=== PATIENT | male | born 1990 | race Two or more races ===

== ENCOUNTER 2017-04-12 12:14 | Emergency (ER) | payer SELFPAY ==
[2017-04-12] MEDS ORDERED: Sodium Chloride 0.9% 1000 ML 1,000 ML IV STA (12:41)
[2017-04-12] MEDS ORDERED: Reglan 10 MG/2 ML IV ONE (12:41)
[2017-04-12] MEDS ORDERED: BENADRYL 50 MG/ML IV ONE (12:41)
--- NOTE | 2017-04-12 12:49 | ERPHSYRPT ---
- History of Present Illness Time Seen by Provider: 04/12/17 12:33 Source: patient Exam Limitations: no limitations Patient Subjective Stated Complaint: Pt states he has had a headache since 4 this morning that continues to get worse. He is now having double/blurred vision. Bright light makes the pain worse. Pt states he feels weak. He is supposed to take migraine medicine but cannot bring them into the [place] so he has not had them in 6-7 months. Triage Nursing Assessment: Pt alert and oriented x3. skin pink warm and dry. afebrile. no weakness noted. pupils 4mm equal and reactive Physician History: 27-year-old white male arrives with complaint of frontal headache which he describes as a migraine which he usually gets since 4:00 this morning he denies any vomiting he denies fever states that he has had nasal congestion and pressure in the sinus area. He has no photophobia. Past medical history includes migraines orthopedic surgery Patient states that he is from [facility] and apparently had small blue pills that he took one in the morning and when it tonight but he was not allowed to [place] the country. Timing/Duration: today (fourth 30 this morning) Quality: aching Head Pain Location: frontal Severity of Pain-Max: moderate Severity of Pain-Current: moderate Recent Head Trauma: chronic headaches Modifying Factors: Worsens With: exposure to light, immobilization, medication, movement, rest, noise, position Associated Symptoms: No confusion, No dizziness, No fatigue, No facial pain, No fever/chills, No flushing, No light-headedness, No loss of consciousness, No nausea/vomiting, No nasal congestion, No nasal drainage, No neck pain, No numbness in legs/feet, No rash, No sweating, No scotoma, No seizures, No sinus infection, No sensitive to light, No speech problems, No stiff neck, No trouble walking, No vision changes, No visual disturbance, No weakness Previous symptoms: same symptoms as today Allergies/Adverse Reactions: No Known Drug Allergies Allergy (Unverified 04/12/17 12:26) Hx Pneumococcal Vaccination/Date Given: No Immunizations Up to Date: No - Review of Systems Constitutional: No Fever, No Chills Eyes: No Symptoms, No Discharge, No Eye Pain, No Eye Redness, No Itchy, No Photophobia, No Tearing, No Vision Changes, No Double Vision, No Foreign Body Sensation Ears, Nose, & Throat: No Ear Pain, No Ear Discharge, No Hearing Changes, No Tinnitus, No Nose Discharge, No Sinus Drainage, No Epistaxis, No Mouth Pain, No Mouth Swelling, No Loose Teeth, No Throat Pain, No Throat Swelling, No Hoarse, No Painful Swallowing, No Snoring, No Stridor Respiratory: No Cough, No Dyspnea Cardiac: No Chest Pain, No Edema, No Syncope Abdominal/Gastrointestinal: No Abdominal Pain, No Nausea, No Vomiting, No Diarrhea Genitourinary Symptoms: No Dysuria Musculoskeletal: No Back Pain, No Neck Pain Skin: No Rash Neurological: Headache, No Dizziness, No Focal Weakness, No Gait Changes, No Irritability, No Lethargy, No Paralysis, No Parasthesia, No Seizure, No Sensory Changes, No Speech Changes, No Tics, No Tremors, No Vertigo Psychological: No Symptoms Endocrine: No Symptoms All Other Systems: Reviewed and Negative - Past Medical History Neurological History: Migraines Other Medical History: femur fx - Past Surgical History Musculoskeletal: Orthopedic Surgery Other Surgical History: femur repair - Social History Smoking Status: Current every day smoker Drug Use: none Patient Lives Alone: No - Nursing Vital Signs Nursing Vital Signs: Initial Vital Signs Temperature 98.3 F 04/12/17 12:17 Pulse Rate 59 L 04/12/17 12:17 Respiratory Rate 16 04/12/17 12:17 Blood Pressure 157/98 04/12/17 12:17 O2 Sat by Pulse Oximetry 100 04/12/17 12:17 Pain Scale Pain Intensity 8 - Physical Exam General Appearance: no apparent distress Eye Exam: PERRL/EOMI Ears, Nose, Throat Exam: normal ENT inspection, moist mucous membranes Neck Exam: normal inspection, supple, full range of motion, No meningismus Respiratory Exam: normal breath sounds, lungs clear Cardiovascular Exam: regular rate/rhythm, normal heart sounds Gastrointestinal/Abdominal Exam: soft, No tenderness, No distention Back Exam: normal inspection, normal range of motion Mental Status Exam: alert, oriented x 3, 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 Exam: normal speech, PERRL, No facial droop Coordination/Gait Exam: normal finger to nose, normal gait, normal cerebellar function Motor/Sensory Exam: no motor deficit, no sensory deficit, no pronator drift, No weak motor strength LUE, No weak motor strength RLE Skin Exam: normal color, warm, dry, No rash SpO2 Interpretation: normal (100%) SpO2: 100 Oxygen Delivery: Room Air Ordered Tests: Active Orders 24 hr Category Date Time Status IV Insertion STAT Care 04/12/17 12:41 Active Medication Summary Generic Name Dose Route Start Last Admin Trade Name Hina PRN Reason Stop Dose Admin Sodium Chloride 1,000 mls @ 999 mls/hr 04/12/17 12:41 04/12/17 12:56 Sodium Chloride 0.9% 1000 Ml IV 04/12/17 13:41 999 mls/hr .Q1H1M STA Administration Discontinued Medications Generic Name Dose Route Start Last Admin Trade Name Freq PRN Reason Stop Dose Admin Diphenhydramine HCl 25 mg 04/12/17 12:41 04/12/17 12:56 Benadryl 50 Mg/Ml IV 04/12/17 12:42 25 mg STAT ONE Administration Diphenhydramine HCl Confirm 04/12/17 12:50 Benadryl 50 Mg/Ml Administered 04/12/17 12:51 Dose 50 mg .ROUTE .STK-MED ONE Sodium Chloride Confirm 04/12/17 12:50 Sodium Chloride 0.9% 1000 Ml Administered 04/12/17 12:51 Dose 1,000 mls @ ud .ROUTE .STK-MED ONE Metoclopramide HCl 10 mg 04/12/17 12:41 04/12/17 12:56 Reglan 10 Mg/2 Ml IV 04/12/17 12:42 10 mg STAT ONE Administration Metoclopramide HCl Confirm 04/12/17 12:50 Reglan 10 Mg/2 Ml Administered 04/12/17 12:51 Dose 10 mg .ROUTE .STK-MED ONE - Progress Progress: improved Air Movement: fair Progress Note: 04/12/17 12:47 27-year-old white male who states he comes with [facility] arrives with complaint of frontal headache since 4:30 this morning. Patient apparently told the nurse he had nausea tells me he doesn't he does state he has had a cough and some nasal congestion no fevers patient without any photophobia patient states his symptoms of his headache are similar to what he's had chronically he states that it [place] he was taking a blue pill one in the morning and one of the night to prevent these headaches. On physical examination patient is alert oriented 3 pleasant and cooperative to examination and does not appear to be in acute distress. He has a normal neurologic examination eyes PERRLA EOMI fundi are unremarkable. Some slight erythema to the nasal mucosa . Heart is regular lungs are clear medical technologist are equal and symmetrical 5 over 5 finger -nose within normal limits neurologic examination is within normal limits. Will give patient Reglan 10 mg Benadryl 25 mg IV with normal saline 1 L We will consider Zithromax for treatment of sinusitis 04/12/17 13:20 Patient improving after Reglan, Benadryl and IV fluids. Will plan to discharge. Will add Zithromax for sinusitis as well. Diagnosis migraine headache. Sinusitis. - Departure Time of Disposition: 13:20 Departure Disposition: Home Clinical Impression: Migraine headache Qualifiers: Migraine type: unspecified Status migrainosus presence: without status migrainosus Intractability: not intractable Qualified Code(s): G43.909 - Migraine, unspecified, not intractable, without status migrainosus Sinusitis Qualifiers: Sinusitis location: unspecified location Chronicity: acute Recurrence: not specified as recurrent Qualified Code(s): J01.90 - Acute sinusitis, unspecified Condition: Fair Critical Care Time: No Referrals: LUANA PURVIS MD [Primary Care Provider] - Instructions: Headache Additional Instructions: Return home. Zithromax Z-STEPHY as directed. Rest dark quiet room. Tylenol every 4 hours Motrin every 6 hours as needed for pain. Follow-up with your family doctor (list) if symptoms are recurrent or become worse or nasal congestion persists longer than one week. Return for acute distress or for severe symptoms. Prescriptions: Azithromycin 250 mg [Zithromax 250 MG TABLET] 0 mg PO ZPACK #6 tablet
[2017-04-12] MEDS ORDERED: Reglan 10 MG/2 ML ONE (12:50)
[2017-04-12] MEDS ORDERED: BENADRYL 50 MG/ML ONE (12:50)
[2017-04-12] MEDS ORDERED: Sodium Chloride 0.9% 1000 ML 1,000 ML ONE (12:50)
[2017-04-12 14:11] VITALS: BP 127/74; PULSE 74; O2SAT 97
== END 2017-04-12 14:10 | disposition home or self-care (01) ==
LOC: ED 12:14
DX: G43.909 Migraine, unspecified, not intractable, without status migrainosus (principal); J01.90 Acute sinusitis, unspecified
CPT/HCPCS: 36000; 96360; 96374; 96375; 99284; J1200